=== PATIENT | male | born 1940 | race Caucasian/White ===

== ENCOUNTER → 2018-06-19 | Outpatient (CLI) | payer OTHER ==
[~2018-06-19] VITALS: Ht 152.4 cm; Wt 90.7 kg
[~2018-06-19] MED LIST: ASPIR 8181 MG PO; CENTRUM SILVER1 EAC4 PO; LISINOPRIL-HCT1 EAC1 PO
--- NOTE | ~2018-06-19 | HPC ---
[facility] [address] [place] [address] PAIN MANAGEMENT CONSULTATION Name: DIOGO KUMAR Room #: REG [facility].#: [id number] Admission: 06/19/18 Attend Phys: Hardik Mackay MD Discharge: Date of : 44 Report #: [id number] THIS REPORT FOR: //name// CC: Ovidio Allen DO Hardik Mackay DATE OF SERVICE: 06/19/2018 CHIEF COMPLAINT: Low back pain with radiation into the left leg. 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 Pain began in April. He and his were down in [place] at the [facility], a lot of time standing and sitting, and he felt that after that he had intermittent aching sensation that has worsened recently after a golf game. He played golf [place] and was walking up and down hills with sidehill lies. After that game, he had more pain and the pain began to be more radicular into the distribution of the medial aspect of the left leg. He saw Dr. Allen who provided him with some initial physical therapy and also has been doing some home stretching and exercises. An MRI was ordered and performed on 05/14/2018 and I had an opportunity to review both the films as well as the report from [facility]. He has multiple levels of changes, which are noted in the medical record. I will summarize that there is foraminal stenosis and effacement of the exiting left L2 nerve root, which I believe correlates. There is also L3 left effacement correlating with L3 radicular symptoms, which the patient has. Degenerative changes are seen at L4-L5 and L5-S1 as well where bilateral neuroforaminal stenosis is noted. The nerve root is most compressed on the right at L4-L5. He has no right-sided symptoms. MEDICATIONS: Methylprednisolone has been given intermittently and is very helpful; he had the last injection on 05/12/2018. Daily he takes lisinopril/hydrochlorothiazide, baby aspirin and Senior Vitamin. ALLERGIES: None. PAST MEDICAL HISTORY: Remarkable for cholecystectomy and hypertension, but otherwise he has been in good health. REVIEW OF SYSTEMS: Positive for fatigue and weakness of the left leg, burning on urination and nocturia, some mild incontinence. He says he has some early memory loss, but this was certainly not evident during his exam. PHYSICAL EXAMINATION: Blood pressure 130/71, heart rate 82, respirations 16. [address] [address] PAIN MANAGEMENT CONSULTATION Name: DIOGO KUMAR Room #: [facility]#: [id number] Admission: 06/19/18 Attend Phys: Hardik Mackay MD Discharge: Date of : 44 Report #: [id number] He moves easily from sitting to standing position. His gait is stable. He does not appear to be a fall risk. He moves easily in flexion and extension. There is notable tenderness across the lumbosacral segment. Straight leg raising reproduces a pain, which I would consider to be more medial in inner thigh than posterior thigh, and this would be consistent with the L2 radiculopathy anticipated from his MRI. Straight leg raising is also uncomfortable and with a tightness, but only mildly. Deep tendon reflexes are diminished at the knee on the right in comparison to the left suggesting upper lumbar dermatomal distribution of nerve impingement. Sensation is intact. IMPRESSION: Low back pain with radiculopathy. Likely pain generator is at the L2-L3 level, although there is certainly some potential for L3-L4 impingement as well. I recommended an epidural injection to cover these dermatomal distributions. PROCEDURE: He was taken to the fluoroscopic suite and placed prone, skin prepped with ChloraPrep. Skin anesthetized over the L3-L4 interspace to the left of midline. A 20-gauge Tuohy epidural needle was advanced into the epidural space using loss of resistance technique. There was no blood nor CSF aspirated. A 1 mL of Omnipaque was injected and good spread of dye was observed into the epidural space. It was followed by 3 mL of 0.5% lidocaine mixed with 80 mg of triamcinolone. He tolerated the procedure well. He was observed for 45 minutes. Pain score was 0 at discharge. Followup visit is planned in 1 month. By: [id number] Hardik Mackay MD /nt
[2018-06-19 10:44] VITALS: BP 130/71
== END | disposition home or self-care (01) ==
LOC: PAIN 09:09
DX: M54.16 Radiculopathy, lumbar region (principal); G89.29 Other chronic pain; I10 Essential (primary) hypertension; K75.9 Inflammatory liver disease, unspecified; M19.90 Unspecified osteoarthritis, unspecified site; Z87.891 Personal history of nicotine dependence; Z79.899 Other long term (current) drug therapy; Z90.49 Acquired absence of other specified parts of digestive tract; Z79.82 Long term (current) use of aspirin; Z98.890 Other specified postprocedural states

== ENCOUNTER → 2018-11-10 | Outpatient (CLI) | payer OTHER ==
[~2018-11-10] VITALS: Ht 182.9 cm; Wt 92.7 kg
--- NOTE | ~2018-11-10 | HPC ---
[facility] [place] [address] PAIN MANAGEMENT CONSULTATION Name: DIOGO KUMAR [id number] Admission: 11/10/18 ������������������ Attend Phys: Hardik Mackay MD Discharge: ������������������ Date of : 44 Report #: [id number] THIS REPORT FOR: //name// CC: Dr. Ovidio Mackay DATE OF SERVICE: 11/10/2018 Followup visit for chronic low back pain with radiculopathy. The patient returns to pain clinic today in followup. He is here today for an epidural injection. He scores his pain as a 10/10. He had an injection in June. He reported that he had substantial improvement. He is still better than he was in June, although he scores his pain as a 10. He complains of pain in his left thigh that radiates to the knee. It is worse with standing and walking. If he sits in a straight back chair, often times the pain will generally ease. I have reviewed medications. He is on no blood thinners. He takes lisinopril and hydrochlorothiazide for hypertension. He has not fallen in the last several months. He is not a fall risk. He is not currently taking opioid medication. PHYSICAL EXAMINATION: VITAL SIGNS: Blood pressure 142/75, heart rate 70, respirations 16. He is 6 feet tall with a weight of 204 that gives him a BMI of 27.7. He can move from sitting to standing position and ambulate with mild antalgic features. He has some pain and tenderness across his low back and he has positive straight leg raising pain that follows an L3-L4 distribution. IMPRESSION: Lumbar radiculopathy. He responded very well to previous injections with longer term response. I think he is an excellent candidate to repeat the injection today. Potential benefits and risks were discussed. He is anxious to proceed, was taken to fluoroscopic suite, placed prone, skin prepped with ChloraPrep. Skin anesthetized over the L3-L4 interspace. A 20-gauge Tuohy epidural needle advanced first attempt in the epidural space with loss of resistance technique. There was no blood or CSF aspirated. 1 mL of Omnipaque was injected. Good spread of dye observed in the epidural space followed by 3 mL of 0.5% lidocaine mixed with 80 mg of triamcinolone. He tolerated the procedure well, was observed for 45 minutes and discharged. [address] [address] PAIN MANAGEMENT CONSULTATION Name: DIOGO KUMAR Room #: REG [facility]#: [id number] Admission: 11/10/18 ������������������ Attend Phys: Hardik Mackay MD Discharge: ������������������ Date of : 44 Report #: [id number] Followup visit planned in the pain clinic on an as needed basis. ��������������������������������������������� ���������������������������������������� By: ��������������������������������������������� [id number] Hardik Mackay MD /nt
[2018-11-10 15:01] VITALS: BP 149/75
--- NOTE | 2018-11-10 15:13 | NUR ---
Pain Clinic Assessment: 1. History of Osteoarthritis: back History of Rheumatoid Arthritis: no 2. Height: 6 ft. 0 in. 182.9 cm. Weight: 204.4 lb. oz. 92.715 kg. Patient's BMI: 27.7 3. Vital Signs: BP: 149/75 Pulse: 70 Resp: 16 Temp: 02 Sat: 98 ECG Mon: 4. Pain Intensity: 10 5. Fall Risk: Dizziness: N Needs help standing or walking: N Fallen in the last 3 months: N Fall risk comments: 6. Patient on Blood Thinner: None 7. History of Hypertension: Y 8. Opioid Therapy greater than 6 weeks: N Opiate Contract Signed: 9. Risk Assessment Tool Provided: LOW 10. Functional Assessment Tool: 11. Recreational Drug Use: Unknown Drug Type: Tobacco Use: Former Smoker Tobacco Type: Amount or Packs/day: How Many Years: Alcohol Use: No Frequency: Quant:
== END | disposition home or self-care (01) ==
LOC: PAIN 06:59
DX: M54.16 Radiculopathy, lumbar region (principal); G89.29 Other chronic pain; I10 Essential (primary) hypertension; Z79.899 Other long term (current) drug therapy; Z79.891 Long term (current) use of opiate analgesic; Z87.891 Personal history of nicotine dependence; Z79.82 Long term (current) use of aspirin

== ENCOUNTER → 2019-04-09 | Outpatient (CLI) | payer OTHER ==
[~2019-04-09] VITALS: Ht 180.3 cm; Wt 89.2 kg
[~2019-04-09] MED LIST changes: +ALEVE220 MG PO
[2019-04-09 09:20] VITALS: BP 139/92
--- NOTE | 2019-04-09 09:32 | NUR ---
Pain Clinic Assessment: 1. History of Osteoarthritis: back History of Rheumatoid Arthritis: no 2. Height: 5 ft. 11 in. 180.3 cm. Weight: 196.6 lb. oz. 89.177 kg. Patient's BMI: 27.4 3. Vital Signs: BP: 139/92 Pulse: 76 Resp: 16 Temp: 02 Sat: 97 ECG Mon: 4. Pain Intensity: 3 5. Fall Risk: Dizziness: N Needs help standing or walking: N Fallen in the last 3 months: N Fall risk comments: 6. Patient on Blood Thinner: None 7. History of Hypertension: Y 8. Opioid Therapy greater than 6 weeks: N Opiate Contract Signed: 9. Risk Assessment Tool Provided: LOW 10. Functional Assessment Tool: 11. Recreational Drug Use: Unknown Drug Type: Tobacco Use: Former Smoker Tobacco Type: Amount or Packs/day: How Many Years: Alcohol Use: No Frequency: Quant:
--- NOTE | 2019-04-16 16:52 | HPC ---
[facility] [address] [place] [address] PAIN MANAGEMENT CONSULTATION Name: DIOGO KUMAR Room #: REG [facility].#: [id number] Admission: 04/09/19 Attend Phys: Hardik Mackay MD Discharge: Date of : 44 Report #: [id number] THIS REPORT FOR: //name// CC: Ovidio Mackay DATE OF SERVICE: 04/09/2019 HISTORY OF PRESENT ILLNESS: The patient is a pleasant 79-year-old gentleman who has responded very favorably to epidural steroid injections in the past. He is here today reporting some recurring pain in his low back radiating into his left leg. Epidural injections have provided up to 70-80% pain relief. Pain is most severe for him with standing and walking. He gets relief sitting in a straight back chair. At his initial visit, his pain score is 10/10; today, he is down to a 3. He also says at his last visit, the pain was worse in his low back, but today, his low back has improved from the epidural and his pain is in his left buttock and left leg. We discussed medications including mild opioid medications and naproxen sodium. He has been taking 2 Aleve a day. We discussed the NSAID side effects and risks. He is also taking lisinopril, hydrochlorothiazide, multivitamins and aspirin. Combination of aspirin at low dose and NSAID should put him at additional awareness of GI potential side effects. PHYSICAL EXAMINATION: VITAL SIGNS: He is 5 feet 11 inches, 196 pounds, BMI 27.4. Blood pressure 139/92, heart rate 96, respirations 16. MUSCULOSKELETAL: Moves independently from sitting to standing position, walks with a stable gait. He is not a fall risk. He denies any history of arthritis, other than the pain in his back, which is spondylitic. SOCIAL HISTORY: He denies use of tobacco and alcohol. IMPRESSION: Lumbosacral pain with degenerative disk disease and radiculopathy. RECOMMENDATIONS: Repeat epidural injection under fluoroscopic guidance. The patient was taken to fluoroscopic suite for treatment, placed prone, skin prepped with ChloraPrep. Skin anesthetized over the L3-L4 interspace and a 20-gauge Tuohy epidural needle advanced in the epidural space on the first attempt using loss of resistance. There was no blood, no CSF aspirated. A 1 mL of Omnipaque injected, followed by 80 mg of triamcinolone. He tolerated the procedure well. There [place] [address] PAIN MANAGEMENT CONSULTATION Name: DIOGO KUMAR [facility] [id number] Admission: 04/09/19 Attend Phys: Hardik Mackay MD Discharge: Date of : 44 Report #: [id number] PLAN: To follow up in the pain clinic in 1-2 months. <ELECTRONICALLY SIGNED> By: Hardik Mackay MD 04/16/19 [id number] Hardik Macaky MD /brittany
== END | disposition home or self-care (01) ==
LOC: PAIN 06:50
DX: M51.16 Intervertebral disc disorders with radiculopathy, lumbar region (principal); Z98.890 Other specified postprocedural states; Z87.891 Personal history of nicotine dependence; Z79.82 Long term (current) use of aspirin; Z79.899 Other long term (current) drug therapy

== ENCOUNTER → 2020-07-22 | Outpatient (CLI) | payer OTHER | LOC: SJCVC 14:02 | PROVIDERS: ATTEND Internal Medicine | DX: R94.31 Abnormal electrocardiogram [ECG] [EKG] (principal); I45.10 Unspecified right bundle-branch block; E78.00 Pure hypercholesterolemia, unspecified; I10 Essential (primary) hypertension; Z87.891 Personal history of nicotine dependence; Z79.82 Long term (current) use of aspirin; Z79.899 Other long term (current) drug therapy; Z88.8 Allergy status to other drugs, medicaments and biological substances ==

== ENCOUNTER → 2020-08-12 | Outpatient (CLI) | payer OTHER | LOC: SJCVCIMAG 09:04 | PROVIDERS: ATTEND Internal Medicine | DX: I08.2 Rheumatic disorders of both aortic and tricuspid valves (principal); I27.20 Pulmonary hypertension, unspecified; R00.0 Tachycardia, unspecified; I49.3 Ventricular premature depolarization; I45.10 Unspecified right bundle-branch block; I10 Essential (primary) hypertension; Z88.8 Allergy status to other drugs, medicaments and biological substances; Z79.82 Long term (current) use of aspirin; Z79.899 Other long term (current) drug therapy; Z87.891 Personal history of nicotine dependence; Z82.49 Family history of ischemic heart disease and other diseases of the circulatory system ==